=== PATIENT | female | born 2000 | race Caucasian/White ===

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

== ENCOUNTER 2022-02-09 17:01 | Emergency (ER) | payer MEDICAID ==
[~2022-02-09] VITALS: Ht 167.6 cm; Wt 70.3 kg
[2022-02-09 17:10] VITALS: BP_SYST 122
--- NOTE | 2022-02-09 17:10 | NUR ---
Pt walked ambulatory to rm 5 and triaged.
--- NOTE | 2022-02-09 17:11 | NUR ---
Dr. Lima at bedside.
--- NOTE | 2022-02-09 17:14 | NUR ---
Patient to ER bed 5 for evaluation. Side rails up. Report given to Zofia CHAU.
--- NOTE | 2022-02-09 17:20 | NUR ---
Pt came in from home with rash on both eyelids and states no pain. The rash started on tuesday and has gotten worse and itchy. Patient states that she does not no what brought it about. Patient has no past medical or surgical history and takes no home medications. Pt is connected to monitor and sfatey precautions are in place.
[2022-02-09] MEDS ORDERED: BENZ68FO TP (17:26)
[2022-02-09] MEDS ORDERED: DIPH25CA83 PO (17:26)
--- NOTE | 2022-02-09 17:48 | NUR ---
Patient given written and verbal discharge instructions and verbalizes understanding. ER MD discussed with patient the results and treatment provided. Patient in stable condition. ID arm band removed. Rx of Benadryl and Neosporin given. Patient educated on pain management and to follow up with PMD. Pain Scale 0/10. Opportunity for questions provided and answered. Medication side effect fact sheet provided.
[2022-02-09 17:49] VITALS: BP_SYST 122
== END 2022-02-09 17:49 | disposition home or self-care (01) ==
LOC: SED 17:01
DX: L23.9 Allergic contact dermatitis, unspecified cause (principal); Z91.040 Latex allergy status
CPT/HCPCS: 99282; 99283

== ENCOUNTER 2023-03-05 00:35 | Emergency (ER) | payer MEDICAID ==
[~2023-03-05] VITALS: Ht 167.6 cm; Wt 83.0 kg
[~2023-03-05 00:35] MED LIST: BENZ68FO TP; DIPH25CA83 PO
[2023-03-05 00:43] VITALS: BP_SYST 147
--- NOTE | 2023-03-05 00:48 | NUR ---
Mauri west in [facility] - 03/05/23 at 0048 by [email or web address] PT WAS TAKEN TO BED 5, ASKED TO CHANGE INTO GOWN.
--- NOTE | 2023-03-05 00:49 | NUR ---
PT WAS TAKEN TO BED 5, PLACED ON GOWN, DOCTOR AT BEDSIDE.
--- NOTE | 2023-03-05 00:50 | NUR ---
ER at bedside examining patient.
--- NOTE | 2023-03-05 00:50 | NUR ---
PT BIB FAMILY MEMBER FROM HOME, AMBULATED TO BED 5. PT A&Ox4, ABLE TO MAKE NEEDS KNOWN. PT C/O RASH ON FACE AND NECK X2 DAYS, ITCHING BEGAN TODAY. PT DENIES USING NEW PRODUCTS. PT STATES SHE JUST FINISHED TAKING ANTIBIOTICS FOR INFLAMMED GUMS. PT DENIES DIFFICULTY SWALLOWING. PT DENIES N/V/D, FEVER AND CHILLS. PT DENIES FEVER AND CHILLS, SOB AND CHEST PAIN. PT DENIES TAKING MEDICATION FOR THE ITCHING. SAFETY MEASURES IN PLACE.
[2023-03-05] MEDS ORDERED: CEPH-548 PO (01:03)
[2023-03-05] MEDS ORDERED: DIPH25CA83 PO (01:03)
--- NOTE | 2023-03-05 01:13 | NUR ---
Patient given written and verbal discharge instructions and verbalizes understanding. ER DR BHANDARI discussed with patient the results and treatment provided. Patient in stable condition. ID arm band removed. Rx of BENADRYL AND CEPHALEXIN given. Patient educated on pain management and to follow up with PMD. Opportunity for questions provided and answered. Medication side effect fact sheet provided.
[2023-03-05 01:15] VITALS: BP_SYST 147
== END 2023-03-05 01:15 | disposition home or self-care (01) ==
LOC: SED 00:35
DX: R21 Rash and other nonspecific skin eruption (principal); Z91.041 Radiographic dye allergy status; Z79.899 Other long term (current) drug therapy
CPT/HCPCS: 99283

== ENCOUNTER 2023-08-16 17:33 | Emergency (ER) | payer MEDICAID ==
[~2023-08-16] VITALS: Ht 167.6 cm; Wt 81.6 kg
[~2023-08-16 17:33] MED LIST changes: +CEPH-548 PO
[2023-08-16 17:50] VITALS: BP_SYST 129; PULSE 97; RESP 18; TEMP 97.7; O2SAT 99
[2023-08-16 20:22] VITALS: BP_SYST 113; PULSE 86; RESP 16; TEMP 97; O2SAT 98
== END 2023-08-16 20:21 | disposition home or self-care (01) ==
LOC: SED 17:33
DX: S09.90XA Unspecified injury of head, initial encounter (principal); R42 Dizziness and giddiness; R11.0 Nausea; Z91.040 Latex allergy status; Z79.899 Other long term (current) drug therapy; W22.8XXA Striking against or struck by other objects, initial encounter; Y93.89 Activity, other specified; Y92.89 Other specified places as the place of occurrence of the external cause; Y99.8 Other external cause status
CPT/HCPCS: 81025; 99282

== ENCOUNTER 2023-11-22 12:08 | Emergency (ER) | payer MEDICAID ==
[~2023-11-22] VITALS: Ht 170.2 cm; Wt 81.6 kg
[2023-11-22 12:19] VITALS: PULSE 84; RESP 16; O2SAT 98
== END 2023-11-22 16:00 | disposition home or self-care (01) ==
LOC: SED 12:08
DX: J18.9 Pneumonia, unspecified organism (principal); R05.9 Cough, unspecified; R09.81 Nasal congestion; Z91.040 Latex allergy status; Z79.899 Other long term (current) drug therapy
CPT/HCPCS: 71045; 99283